=== PATIENT | male | born 1990 | race African-American/Black ===

== ENCOUNTER 2023-03-31 05:41 | Emergency (ER) | payer MEDICAID, OTHER ==
[~2023-03-31] VITALS: Ht 172.7 cm; Wt 96.0 kg
[2023-03-31 05:59] VITALS: BP 134/96; PULSE 77; RESP 15; TEMP 98.6; O2SAT 98
== END 2023-03-31 09:28 | disposition left against medical advice (07) ==
LOC: ER 05:41
DX: J34.89 Other specified disorders of nose and nasal sinuses (principal); R09.81 Nasal congestion; Z53.21 Procedure and treatment not carried out due to patient leaving prior to being seen by health care provider
CPT/HCPCS: 99281

== ENCOUNTER 2023-07-21 01:56 | Emergency (ER) | payer MEDICAID ==
[~2023-07-21] VITALS: Ht 172.7 cm; Wt 87.0 kg
[2023-07-21 02:48] VITALS: BP 118/91; TEMP 98.5
[2023-07-21] MEDS ORDERED: ALBU6.7H15 INH (03:17)
[2023-07-21 03:40] VITALS: PULSE 78; RESP 18; O2SAT 98
[2023-07-21] MEDS: ALBUTEROL (0.083%) 2.5MG/3ML NEB HHN ONE (03:48)
[2023-07-21] MEDS ORDERED: LORATADINE 10MG TABLET PO SCH (04:15)
== END 2023-07-21 04:48 | disposition home or self-care (01) ==
LOC: ER 01:56
DX: J45.901 Unspecified asthma with (acute) exacerbation (principal); Z91.010 Allergy to peanuts; Z00.00 Encounter for general adult medical examination without abnormal findings
CPT/HCPCS: 94640; 93005; 99283; Z7610 ×3

== ENCOUNTER 2023-09-03 08:51 | Emergency (ER) | payer MEDICAID, OTHER ==
[~2023-09-03] VITALS: Ht 180.3 cm; Wt 91.0 kg
[~2023-09-03 08:51] MED LIST: ALBU6.7H15 INH
[2023-09-03 08:58] VITALS: BP 135/99; PULSE 65; RESP 20; TEMP 98.1; O2SAT 100
== END 2023-09-03 09:19 | disposition home or self-care (01) ==
LOC: ER 08:51
DX: F41.9 Anxiety disorder, unspecified (principal); J45.909 Unspecified asthma, uncomplicated; Z98.890 Other specified postprocedural states; Z91.010 Allergy to peanuts
CPT/HCPCS: 99281

== ENCOUNTER 2023-09-08 23:58 | Emergency (ER) | payer OTHER ==
[~2023-09-08] VITALS: Ht 172.7 cm; Wt 89.0 kg
[2023-09-09 00:30] VITALS: O2SAT 100
[2023-09-09] MEDS: ALBUTEROL (0.083%) 2.5MG/3ML NEB HHN STA (01:35)
[2023-09-09] MEDS: PREDNISONE 20MG TABLET PO STA (01:35)
[2023-09-09] MEDS ORDERED: ALBU18HF2 IH (01:36)
[2023-09-09] MEDS ORDERED: P50 MT (01:36)
[2023-09-09] MEDS ORDERED: FLUT9.9S BOTHNSTRLS (01:36)
[2023-09-09 02:08] VITALS: BP 112/74; PULSE 66; RESP 14; TEMP 97.7
== END 2023-09-09 02:10 | disposition home or self-care (01) ==
LOC: ER 09-09 00:28
DX: J45.901 Unspecified asthma with (acute) exacerbation (principal); F41.9 Anxiety disorder, unspecified; Z79.899 Other long term (current) drug therapy
CPT/HCPCS: 99283; J7512

== ENCOUNTER 2023-09-18 00:51 | Emergency (ER) | payer MEDICAID, OTHER ==
[~2023-09-18] VITALS: Ht 172.7 cm; Wt 85.0 kg
[~2023-09-18 00:51] MED LIST changes: +ALBU18HF2 IH; +FLUT9.9S BOTHNSTRLS; +P50 MT
[2023-09-18 01:50] VITALS: PULSE 84; RESP 20; O2SAT 96
[2023-09-18] MEDS: ALBUTEROL (0.083%) 2.5MG/3ML NEB HHN STA (01:50)
[2023-09-18] MEDS: IPRATROPIUM BROMIDE (0.02%) 0.5MG/2.5ML NEB HHN STA (01:50)
[2023-09-18] MEDS ORDERED: P50 MT (02:46)
[2023-09-18] MEDS ORDERED: ALBU18HF2 IH (02:46)
[2023-09-18] MEDS: METHYLPREDNISOLONE SOD SUCC 125MG/2ML (ACT-O-VIAL) IM STA (03:29)
[2023-09-18 03:37] VITALS: BP 135/87; PULSE 70; RESP 17; TEMP 98.1
== END 2023-09-18 03:38 | disposition home or self-care (01) ==
LOC: ER 00:51
DX: J45.901 Unspecified asthma with (acute) exacerbation (principal); F41.9 Anxiety disorder, unspecified; Z91.010 Allergy to peanuts
CPT/HCPCS: 94640; 96372; 99283; J2919; Z7610 ×3